=== PATIENT | female | born 1985 | race Caucasian/White ===

== ENCOUNTER 2020-11-06 18:13 | Inpatient (IN) | payer OTHER ==
[2020-11-06 20:17] LABS: HCT 32.8 % (37.0-47.0); MCH 28.6 pg (25.0-31.0); MCHC 33.5 g/dL (32.0-36.0); MCV 85.4 fL (78.0-100.0); MPV 11.4 fL (6.0-9.5); RBC 3.84 M/uL (4.20-5.40); RDW 14.1 % (11.5-14.0); WBC 12.5 K/uL (4.0-10.5)
[2020-11-06 23:33] LABS: BILIRUBIN NEGATIVE (NEGATIVE); BLOOD NEGATIVE Ery/uL (NEGATIVE); CLARITY CLEAR (CLEAR); COLOR YELLOW (YELLOW); GLUCOSE (U) NORMAL (NORMAL); LEUKOCYTES 1+ Leu/uL (NEGATIVE); NITRITE NEGATIVE (NEGATIVE); PROTEIN NEGATIVE (NEGATIVE); SPECIFIC GRAVITY 1.025 (1.001-1.030); UROBILINOGEN 0.2 mg/dL (0.2-1.0)
[2020-11-06 23:45] LABS: BACTERIA TRACE; SQUAMOUS EPITHELIAL CELLS >50; URINARY RBC RARE
[2020-11-07 06:16] LABS: HCT 27.6 % (37.0-47.0); HGB 9.2 g/dl (12.5-16.0); MCH 28.3 pg (25.0-31.0); MCHC 33.3 g/dL (32.0-36.0); MCV 84.9 fL (78.0-100.0); MPV 11.7 fL (6.0-9.5); RBC 3.25 M/uL (4.20-5.40); RDW 13.9 % (11.5-14.0); WBC 12.5 K/uL (4.0-10.5)
== END 2020-11-08 16:15 | disposition home or self-care (01) | DRG 787 ==
LOC: FOD 18:13 → FOB 18:21 → FOD 20:09 → FOB 20:10
PROVIDERS: ADMIT Obstetrics & Gynecology
PROC: 0HB7XZZ Excision of Abdomen Skin, External Approach (ICD-10-PCS; 2020-11-06)
PROC: 10D00Z1 Extraction of Products of Conception, Low, Open Approach (ICD-10-PCS; principal; 2020-11-06 20:50)
DX: O99.214 Obesity complicating childbirth (principal); D62 Acute posthemorrhagic anemia; E66.9 Obesity, unspecified; Z37.0 Single live birth; O69.81X0 Labor and delivery complicated by cord around neck, without compression, not applicable or unspecified; D22.5 Melanocytic nevi of trunk; O99.02 Anemia complicating childbirth; O26.893 Other specified pregnancy related conditions, third trimester; Z20.822 Contact with and (suspected) exposure to COVID-19; Z3A.38 38 weeks gestation of pregnancy; S32.9XXD Fracture of unspecified parts of lumbosacral spine and pelvis, subsequent encounter for fracture with routine healing; V89.2XXD Person injured in unspecified motor-vehicle accident, traffic, subsequent encounter; Z67.41 Type O blood, Rh negative
CPT/HCPCS: 36415; 81001; 85461; 86850; 86900; 86901; J0456; J0690; J1200; J1885; J2274; J2300; J2370; J2405; J2916; J7050; J7120; U0002